=== PATIENT | male | born 1980 | race African-American/Black ===

== ENCOUNTER 2016-12-05 22:27 | Emergency (ER) | payer OTHER ==
[~2016-12-05] VITALS: Ht 172.7 cm; Wt 87.6 kg
[~2016-12-05 22:27] MED LIST: PROTONIX40 MG PO; ULTRAM50 MG PO
[2016-12-05 23:20] LABS: HEMATOCRIT 41.7 % (38.0-50.0); MCHC 31.4 G/DL (30.0-36.0); MCV 76.5 FL (86-99); MEAN PLAT.VOLUME 9.3 uM^3 (9.0-12.4); PLATELET COUNT 288 K/uL (156-360); RBC DIS.WIDTH-CV 14.7 % (11.8-14.6); RBC DIS.WIDTH-SD 40.5 % (39-53); RED BLOOD COUNT 5.45 M/uL (4.00-5.50); WHITE BLOOD COUNT 6.9 K/uL (4.1-10.2)
[2016-12-05 23:25] LABS: ADD MIUA? NO; BILIRUBIN NEGATIVE; BLOOD NEGATIVE; COLOR STRAW ((YELLOW)); GLUCOSE (STRIP) NEGATIVE; KETONES NEGATIVE; LEUKOCYTES NEGATIVE; NITRITE NEGATIVE; PROTEIN (STRIP) NEGATIVE; SPECIFIC GRAVITY 1.015 (1.000-1.030); UCUL ADDED? NO; UROBILINOGEN 0.2 MG/DL (0.2-1.0)
[2016-12-05 23:30] LABS: CHLORIDE 108 mEq/L (99-109); POTASSIUM 4.6 mEq/L (3.7-5.4); SODIUM 141 mEq/L (136-147)
[2016-12-05 23:33] LABS: GLUCOSE 82 mg/dL (70-99)
[2016-12-05 23:34] LABS: ANION GAP 8 MEQ/L (2-14); TOTAL BILIRUBIN 0.2 mg/dL (0.0-1.0)
[2016-12-05 23:36] LABS: ALKALINE PHOSPHATASE 55 IU/L (3-129); GFR ESTIMATE (CALCULATED) > 59 mL/min/
[2016-12-05 23:38] LABS: UREA NITROGEN (BUN) 13 mg/dL (9-23)
[2016-12-06] MEDS ORDERED: ZOFRAN ODT4 MG PO (00:51)
[2016-12-06] MEDS ORDERED: BENTYL10 MG PO (00:51)
[2016-12-06 01:04] VITALS: BP 147/85
== END 2016-12-06 01:06 | disposition home or self-care (01) ==
LOC: EME 22:27 → EXP 22:27
DX: R10.11 Right upper quadrant pain (principal); K21.9 Gastro-esophageal reflux disease without esophagitis; F17.200 Nicotine dependence, unspecified, uncomplicated
CPT/HCPCS: 74000; 80053; 81003; 85027; 99281; 99284

== ENCOUNTER 2017-01-12 16:39 | Emergency (ER) | payer OTHER ==
[~2017-01-12] VITALS: Ht 172.7 cm; Wt 84.9 kg
[~2017-01-12 16:39] MED LIST changes: +BENTYL10 MG PO; +ZOFRAN ODT4 MG PO
[2017-01-12 16:54] LABS: MCH 24.1 PG (29.0-34.0); MCHC 31.4 G/DL (30.0-36.0); MCV 76.6 FL (86-99); MEAN PLAT.VOLUME 8.6 uM^3 (9.0-12.4); PLATELET COUNT 272 K/uL (156-360); RBC DIS.WIDTH-CV 14.1 % (11.8-14.6); RBC DIS.WIDTH-SD 38.7 % (39-53); RED BLOOD COUNT 5.61 M/uL (4.00-5.50); WHITE BLOOD COUNT 5.7 K/uL (4.1-10.2)
[2017-01-12 17:05] LABS: CHLORIDE 108 mEq/L (99-109); POTASSIUM 3.7 mEq/L (3.7-5.4); SODIUM 140 mEq/L (136-147)
[2017-01-12 17:07] LABS: GLUCOSE 78 mg/dL (70-99)
[2017-01-12 17:08] LABS: ANION GAP 6 MEQ/L (2-14)
[2017-01-12 17:09] LABS: TOTAL BILIRUBIN 0.6 mg/dL (0.0-1.0)
[2017-01-12 17:11] LABS: ALKALINE PHOSPHATASE 62 IU/L (3-129); GFR ESTIMATE (CALCULATED) > 59 mL/min/
[2017-01-12 17:12] LABS: UREA NITROGEN (BUN) 12 mg/dL (9-23)
[2017-01-12 17:14] LABS: LIPASE 44 U/L (1.0-51.0)
[2017-01-12 18:22] LABS: ADD MIUA? YES; BILIRUBIN NEGATIVE; BLOOD SMALL; COLOR YELLOW ((YELLOW)); GLUCOSE (STRIP) NEGATIVE; KETONES 5; LEUKOCYTES NEGATIVE; NITRITE NEGATIVE; PROTEIN (STRIP) NEGATIVE; SPECIFIC GRAVITY 1.029 (1.000-1.030); UROBILINOGEN 0.2 MG/DL (0.2-1.0)
[2017-01-12 18:25] LABS: BACTERIA NONE SEEN /HPF; EPITHELIAL CELLS RARE /HPF; MUCUS 1+ /LPF; RED BLOOD CELLS 0-5 /HPF (0-5); UCUL ADDED? NO; WHITE BLOOD CELLS 0-5 /HPF (0-5)
[2017-01-12 21:28] VITALS: BP 142/82
[2017-01-12] MEDS ORDERED: MOTRIN600 MG PO (21:32)
== END 2017-01-12 21:36 | disposition home or self-care (01) ==
LOC: EME 16:39
DX: R10.9 Unspecified abdominal pain (principal); K21.9 Gastro-esophageal reflux disease without esophagitis; F17.200 Nicotine dependence, unspecified, uncomplicated
CPT/HCPCS: 76705; 80053; 81003; 83690; 85027; 99281; 99284